=== PATIENT | female | born 1970 | race African-American/Black ===

== ENCOUNTER 2019-11-20 10:16 | Emergency (ER) | payer MEDICARE, MEDICAID ==
[2019-11-20] MEDS ORDERED: Lidocaine 1% (PF) 30 ML VIAL ONE (11:10)
[2019-11-20] MEDS ORDERED: Adacel (T-DAP) 0.5 ML SYRINGE ONE (11:11)
[2019-11-20] MEDS ORDERED: Sulfameth/Trimethoprim DS 800-160mg TAB ONE (11:50)
== END 2019-11-20 12:00 | disposition home or self-care (01) ==
LOC: NAV ERS 10:16
DX: L03.031 Cellulitis of right toe (principal); B20 Human immunodeficiency virus [HIV] disease; I10 Essential (primary) hypertension
CPT/HCPCS: 10060; 87070; 87205; 90471; 90715; J2001